=== PATIENT | female | born 1980 | race Caucasian/White ===

== ENCOUNTER → 2021-01-30 10:35 | Outpatient (CLI) | payer MEDICAID, SELFPAY ==
[2021-01-19 15:34] VITALS: BMI 23.3
--- NOTE | 2021-01-30 10:37 | ECHOD_ITS ---
Reason For Study: MVP Procedure This was a 2D Doppler, Color Flow transthoracic echocardiogram. Exam performed in department. Left Ventricle Normal LV size. Left ventricular systolic function is normal. The estimated ejection fraction is 60 %. Normal diastology for age. No regional wall motion abnormalities noted. Right Ventricle Normal RV size. Normal systolic function. Atria Normal left atrium. Normal right atrium. Mitral Valve Normal mitral valve. Tricuspid Valve Normal tricuspid valve. Mild tricuspid valve insufficiency. Pulmonary artery systolic pressure is 26 mmHg. Aortic Valve Normal aortic valve. Pulmonic Valve Normal pulmonic valve. Great Vessels Normal aortic root. The pulmonary artery is normal size. Normal inferior vena cava. Pericardium/Pleural No pericardial effusion. MMode/2D Measurements & Calculations LVIDd: 4.0 cm IVSd: 0.80 cm LA dimension: 2.7 cm LVIDs: 2.9 cm LVPWd: 0.91 cm RVDd: 3.3 cm FS: 26.9 % LAV(MOD-bp): 38.9 ml LVAd ap4: 23.7 cm2 SV(MOD-sp4): 38.5 ml LAV(MOD-bp) Indexed: 24.0 ml/m2 EDV(MOD-sp4): 66.5 ml LAV(MOD-sp2): 39.8 ml EDV(sp4-el): 67.9 ml LAV(MOD-sp4): 36.3 ml LVAs ap4: 13.8 cm2 ESV(MOD-sp4): 28.0 ml ESV(sp4-el): 28.2 ml EF(MOD-sp4): 57.8 % EF(sp4-el): 58.4 % SV(sp4-el): 39.7 ml LA A4 area: 14.4 cm2 RA A4 area: 13.5 cm2 Time Measurements MV dec time: 0.22 sec Doppler Measurements & Calculations MV E max umesh: 83.1 cm/sec Lat Peak E' Umesh: 15.4 cm/sec Med Peak E' Umesh: 13.7 cm/sec MV A max umesh: 63.7 cm/sec E/E' lat: 5.4 E/E' med: 6.1 MV E/A: 1.3 MV V2 max: 115.4 cm/sec MV P1/2t max umesh: 116.5 cm/sec Ao V2 max: 95.9 cm/sec MV max P.3 mmHg MV P1/2t: 61.3 msec Ao max P.7 mmHg MV V2 mean: 57.3 cm/sec MV mean P.6 mmHg MV dec slope: 556.5 cm/sec2 MV V2 VTI: 27.1 cm MVA(P1/2t): 3.6 cm2 LV V1 max: 75.5 cm/sec PA V2 max: 83.8 cm/sec TR max umesh: 234.5 cm/sec LV V1 max P.3 mmHg TR max P.0 mmHg Interpretation Summary Normal LV size. Left ventricular systolic function is normal. The estimated ejection fraction is 60 %. Normal diastology for age. Pulmonary artery systolic pressure is 26 mmHg. Ordering Physician: William Escobedo Referring Physician: Juana Keen Performed By: Kolby Gaston RCS
--- NOTE | 2021-01-30 12:49 | STRESSREP ---
Stress Test Report Exercise stress test. 40-year-old lady with a history of atypical chest pain. Stress protocol: Resting EKG demonstrates normal sinus rhythm with a rate of 73 bpm normal intervals are noted resting blood pressure is 134/82. The patient exercised according to the regular Eleuterio protocol for a total duration of 10 minutes. The patient completed 1 minute into stage IV of the Eleuterio protocol. The maximum heart rate attained was 169 bpm which was 94% of max impacted heart rate the maximum workload was 11.7 metabolic equivalents. Patient maintained sinus rhythm throughout the recording. The peak blood pressure was 170/[address] changes were noted at rest and with exercise not meeting the criteria for ischemia. The rate-pressure product was 21,300 the test was terminated due to the target heart rate being achieved. Conclusion: Exercise stress test with no EKG criteria for ischemia at high workload. No arrhythmias noted. No clinical angina noted.
== END ==
PROVIDERS: PCP Family Medicine; Referring Provider Internal Medicine Cardiovascular Disease; Visit Provider Internal Medicine Cardiovascular Disease
DX: I34.1 Nonrheumatic mitral (valve) prolapse (principal); R07.89 Other chest pain
CPT/HCPCS: 93017; 93306

== ENCOUNTER 2022-07-17 10:30 | Outpatient (CLI) | payer MEDICAID, SELFPAY ==
[2022-07-17 10:40] LABS: Bacteria 0 SEEN /hpf (None Seen); Mucous, Urine 0 SEEN /hpf (<or=2+); Red Blood Cells-Urine 0 SEEN /hpf (0-5)
[2022-07-17 11:08] LABS: Color, Urine Straw (Yellow); Glucose, Dipstick Normal (Normal); Ketone-Dipstick Negative (Negative); Leukocyte Esterase-Dipstick Negative /ul (Negative); Nitrite-Dipstick Negative (Negative); Occult Blood-Urine Negative /ul (Negative); Protein-Dipstick Negative (Negative); Urine Bilirubin Dipstick Negative (Negative); Urine Clarity Clear (Clear); Urine Urobilinogen Normal (Normal)
[2022-07-17 11:14] LABS: Squamous Epithelial Cells - UA 0-5 SEEN /hpf (5-10); White Blood Cells 0-5 SEEN /hpf (0-5)
== END 2022-07-17 23:59 | disposition home or self-care (01) ==
LOC: LABSPEC 10:32
PROVIDERS: PCP Family Medicine; Referring Provider Physician Assistant Surgical; Visit Provider Physician Assistant Surgical
DX: R39.15 Urgency of urination (principal)
CPT/HCPCS: 81001; 87086; 87088

== ENCOUNTER → 2024-05-05 | Outpatient (CLI) | payer MEDICAID, SELFPAY ==
--- NOTE | 2024-05-05 06:36 | MRI_ITS ---
STUDY: MRI LEFT KNEE REASON FOR EXAM: Female, 43 years old. Left knee pain. Medial pain for 6 months. TECHNIQUE: Standardized fat and water weighted pulse sequences were obtained in all 3 orthogonal planes. COMPARISON: Left knee radiographs dated 04/20/2024. FINDINGS: Normal medial meniscus. Normal hyaline cartilage of the medial femorotibial compartment. Normal medial femoral condyle and tibial plateau. Normal medial collateral ligamentous complex (MCL). Normal distal semimembranosus, gracilis and semitendinosus tendons. Normal lateral meniscus. Normal hyaline cartilage of the lateral femorotibial compartment. Normal lateral femoral condyle and tibial plateau. Normal proximal tibiofibular articulation. Normal lateral collateral (fibular) ligament. Normal popliteus tendon. Normal biceps femoris tendon. Normal anterior cruciate ligament (ACL). Normal posterior cruciate ligament (PCL). Normal congruent patellofemoral articulation. Normal hyaline cartilage of the patellofemoral compartment. Normal medial and lateral patellar retinaculum. Normal quadriceps tendon. Normal patellar tendon. Normal Hoffa''s fat pad. There is a tiny joint effusion. There is no popliteal cyst. The soft tissues are unremarkable. The otherwise visualized osseous structures are unremarkable. MRI/Lower Ext Joint Only (Routine) IMPRESSION: Tiny joint effusion. No discrete meniscal tear or acute ligamentous injury. Electronically Signed: Hola Spangler MD at 8:47 EDT ,
== END | disposition home or self-care (01) ==
LOC: MRI 06:26
PROVIDERS: PCP Family Medicine; Referring Provider Orthopaedic Surgery Sports Medicine; Visit Provider Orthopaedic Surgery Sports Medicine
DX: M25.562 Pain in left knee (principal)
CPT/HCPCS: 73721